=== PATIENT | female | born 1950 | race Caucasian/White ===

== ENCOUNTER 2021-02-01 13:51 | Emergency (ER) | payer OTHER ==
[~2021-02-01] VITALS: Ht 172.7 cm; Wt 74.8 kg
[~2021-02-01 13:51] MED LIST: ACET325; ALEN70; ALEN70 PO; ASCO500; ASCO500 PO; ASPI81EC; ASPI81EC PO; BIOTIN1000 MCG; BISA5EC PO; CALCAVITDA PO; CALCIUM 500MG; CETI10 PO; CETI5 PO; CHOL10002; CHOL10002 PO; CLARITIN10 MG; DIGO.125; DIGO.125 PO; DIPH50; DOCU100; DRON400T; DRON400T PO; FEXO180; FIBE4P; FLAX PO; GROUND FLAX SEED; LOSA50; METO25ER PO; MOMENI; MULTAQ 400 MG; PRAV20; PRAVASTATIN; SPIR25; VITAMIN D2000 UNIT; WARF6; WARFARIN PO
[2021-02-01 14:52] LABS: BASOPHILS ABSOLUTE AUTO 0.01 K/mm3 (0.00-0.23); BASOPHILS PERCENT AUTO 0 % (0-2); EOSINOPHILS ABSOLUTE AUTO 0.04 K/mm3 (0.00-0.68); EOSINOPHILS PERCENT AUTO 1 % (0-6); Hematocrit 39.3 % (33.0-51.0); Hemoglobin 13.3 g/dL (11.5-16.0); IMMATURE GRAN ABSOLUTE AUTO 0.01 K/mm3 (0.00-0.10); IMMATURE GRAN PERCENT AUTO 0 % (0-1); LYMPHOCYTES ABSOLUTE AUTO 0.72 K/mm3 (0.84-5.20); LYMPHOCYTES PERCENT AUTO 13 % (21-46); MONOCYTES ABSOLUTE AUTO 0.32 K/mm3 (0.16-1.47); MONOCYTES PERCENT AUTO 6 % (4-13); Mean Corpuscular HGB 31.5 pg (26.0-34.0); Mean Corpuscular HGB Conc 33.8 g/dL (31.5-36.5); Mean Corpuscular Volume 93 fL (80-100); Mean Platelet Volume 10.5 fL (9.1-12.4); NEUTROPHILS ABSOLUTE AUTO 4.37 K/mm3 (1.96-9.15); NEUTROPHILS PERCENT AUTO 80 % (41-73); Platelet Count 304 K/mm3 (150-400); RDW Coefficient Variation 12.4 % (11.7-14.2); RDW Standard Deviation 42.9 fL (35.1-46.3); Red Blood Cell Count 4.22 M/mm3 (3.80-5.20); White Blood Cell Count 5.47 K/mm3 (4.00-11.30)
[2021-02-01 15:06] LABS: Prothrombin Time Results 20.8 Sec (9.7-11.5)
[2021-02-01 15:18] LABS: Alanine Aminotransfer (ALT/SGP 17 U/L (12-78); Albumin, Blood 3.8 g/dL (3.4-5.0); Albumin/Globulin Ratio 1.1 (0.8-1.8); Alk Phos 47 U/L (50-136); Anion Gap 5 mmol/L (6-16); Aspartate Aminotrans (AST/SGOT 18 U/L (12-37); Bilirubin, Total 0.4 mg/dL (0.1-1.0); Blood Urea Nitrogen 11 mg/dL (8-24); Bun/Creatinine Ratio 15.2 (12.0-20.0); CO2, Blood 26 mmol/L (21-32); Calcium, Blood 8.9 mg/dL (8.5-10.1); Chloride, Blood 108 mmol/L (98-108); Creatinine, Blood 0.72 mg/dL (0.40-1.00); Globulin, Blood 3.4 g/dL (2.2-4.0); Glomerular Filtration Rate >60 (60-); Glucose, Blood 110 mg/dL (70-99); Potassium, Blood 3.7 mmol/L (3.5-5.5); Sodium, Blood 139 mmol/L (136-145); Total Protein, Blood 7.2 g/dL (6.4-8.2)
[2021-02-01 15:43] LABS: Source, Urine Clean Catch
[2021-02-01 15:47] LABS: Appearance, Urine Clear (Clear); Bilirubin, Urine Neg (Neg); Blood, Urine Neg (Neg); Color, Urine Yellow (P-Yellow); Glucose Qualitative, Urine Neg (Neg); Ketones, Urine Neg (Neg); Leukocyte Esterase, Urine 1+ (Neg); Nitrite, Urine Neg (Neg); Protein, Urine Neg (Neg); Urobilinogen, Urine NORM (Normal)
[2021-02-01 15:54] LABS: Bacteria Many /hpf; Red Blood Cells, Urine Not Seen /hpf (0-2); Squamous Epithelial Cells Mod /hpf (Few); White Blood Cells, Urine 0-2 /hpf (0-5)
== END 2021-02-01 16:46 | disposition home or self-care (01) ==
LOC: ER 13:51
PROVIDERS: Emergency Medicine
DX: H81.399 Other peripheral vertigo, unspecified ear (principal); Z79.01 Long term (current) use of anticoagulants; Z79.82 Long term (current) use of aspirin; Z79.899 Other long term (current) drug therapy
CPT/HCPCS: 80053; 81001; 82947; 84484; 85025; 85610; 87086; 93005; 93010; 99284-25

== ENCOUNTER 2021-05-19 08:42 | Emergency (ER) | payer OTHER ==
[~2021-05-19] VITALS: Ht 172.7 cm; Wt 74.4 kg
[2021-05-19] MEDS ORDERED: OXYC5 PO (10:34)
== END 2021-05-19 11:32 | disposition home or self-care (01) ==
LOC: ER 08:42
DX: S39.011A Strain of muscle, fascia and tendon of abdomen, initial encounter (principal); I25.2 Old myocardial infarction; J45.909 Unspecified asthma, uncomplicated; Z86.73 Personal history of transient ischemic attack (TIA), and cerebral infarction without residual deficits; Z87.891 Personal history of nicotine dependence; Z79.899 Other long term (current) drug therapy; Z79.01 Long term (current) use of anticoagulants; X58.XXXA Exposure to other specified factors, initial encounter
CPT/HCPCS: 72170; 99283-25

== ENCOUNTER → 2023-10-03 | Outpatient (CLI) | payer OTHER ==
[~2023-10-03] MED LIST changes: +OXYC5 PO
== END ==
LOC: LAB SHORT 15:21 → LAB 15:21
DX: L03.211 Cellulitis of face (principal)
CPT/HCPCS: 87070; 87205

== ENCOUNTER 2024-06-20 23:37 | Emergency (ER) | payer OTHER ==
[~2024-06-20] VITALS: Ht 170.2 cm; Wt 50.8 kg
[2024-06-21] MEDS ORDERED: Gabapentin 100 MG Cap PO ONE (00:05)
[2024-06-21] MEDS ORDERED: Ibuprofen 400 MG Tab PO ONE (00:05)
[2024-06-21] MEDS ORDERED: Voltaren100 GM TOP (00:53)
[2024-06-21 01:00] VITALS: BP 119/75
== END 2024-06-21 01:30 | disposition home or self-care (01) ==
LOC: ER 23:37
DX: M25.562 Pain in left knee (principal); G89.29 Other chronic pain; I25.2 Old myocardial infarction; Z98.890 Other specified postprocedural states; Z87.891 Personal history of nicotine dependence; J45.909 Unspecified asthma, uncomplicated; Z79.82 Long term (current) use of aspirin; Z79.01 Long term (current) use of anticoagulants; Z79.899 Other long term (current) drug therapy; Z88.0 Allergy status to penicillin; Z91.018 Allergy to other foods
CPT/HCPCS: 73562-LT; 99283-25; A9270

== ENCOUNTER 2024-08-15 09:33 | Emergency (ER) | payer OTHER ==
[~2024-08-15] VITALS: Ht 167.6 cm; Wt 68.0 kg
[~2024-08-15 09:33] MED LIST changes: +Voltaren100 GM TOP
[2024-08-15 10:20] LABS: BASOPHILS ABSOLUTE AUTO 0.01 K/mm3 (0.00-0.23); BASOPHILS PERCENT AUTO 0 % (0-2); EOSINOPHILS ABSOLUTE AUTO 0.06 K/mm3 (0.00-0.68); EOSINOPHILS PERCENT AUTO 1 % (0-6); Hematocrit 34.9 % (33.0-51.0); Hemoglobin 11.8 g/dL (11.5-16.0); IMMATURE GRAN ABSOLUTE AUTO 0.02 K/mm3 (0.00-0.10); IMMATURE GRAN PERCENT AUTO 0 % (0-1); LYMPHOCYTES ABSOLUTE AUTO 0.74 K/mm3 (0.84-5.20); LYMPHOCYTES PERCENT AUTO 13 % (21-46); MONOCYTES ABSOLUTE AUTO 0.38 K/mm3 (0.16-1.47); MONOCYTES PERCENT AUTO 7 % (4-13); Mean Corpuscular HGB 31.8 pg (26.0-34.0); Mean Corpuscular HGB Conc 33.8 g/dL (31.5-36.5); Mean Corpuscular Volume 94 fL (80-100); Mean Platelet Volume 9.8 fL (9.1-12.4); NEUTROPHILS ABSOLUTE AUTO 4.59 K/mm3 (1.96-9.15); NEUTROPHILS PERCENT AUTO 79 % (41-73); Platelet Count 328 K/mm3 (150-400); RDW Coefficient Variation 12.8 % (11.7-14.2); RDW Standard Deviation 44.3 fL (35.1-46.3); Red Blood Cell Count 3.71 M/mm3 (3.80-5.20)
[2024-08-15 10:32] LABS: International Normalized Ratio 1.95; Prothrombin Time Results 19.9 Sec (9.7-11.5)
[2024-08-15 10:38] LABS: Albumin, Blood 2.9 g/dL (3.4-5.0); Albumin/Globulin Ratio 0.8 (0.8-1.8); Bilirubin, Total 0.4 mg/dL (0.1-1.0); Bun/Creatinine Ratio 20.5 (12.0-20.0); Calcium, Blood 8.8 mg/dL (8.5-10.1); Creatinine, Blood 0.83 mg/dL (0.40-1.00); Globulin, Blood 3.5 g/dL (2.2-4.0); Total Protein, Blood 6.4 g/dL (6.4-8.2)
[2024-08-15] MEDS ORDERED: NS 1,000 ML IV SCH (11:00)
[2024-08-15 12:34] VITALS: BP 154/95
== END 2024-08-15 12:55 | disposition short-term general hospital (02) ==
LOC: ER 09:33
PROVIDERS: Physician Assistant; Student in an Organized Health Care Education/Training Program
DX: I63.9 Cerebral infarction, unspecified (principal); R47.01 Aphasia; R47.1 Dysarthria and anarthria; I48.91 Unspecified atrial fibrillation; J45.909 Unspecified asthma, uncomplicated; I69.351 Hemiplegia and hemiparesis following cerebral infarction affecting right dominant side; I25.2 Old myocardial infarction; Z87.891 Personal history of nicotine dependence; Z88.0 Allergy status to penicillin; Z91.018 Allergy to other foods; Z79.01 Long term (current) use of anticoagulants; Z79.82 Long term (current) use of aspirin; Z79.899 Other long term (current) drug therapy
CPT/HCPCS: 70450; 70496; 70498; 80053; 82947; 85025; 85610; 93005; 93010; 96360-59; 96361; 99285-25; J7030; Q9967

== ENCOUNTER 2024-10-31 03:35 | Emergency (ER) | payer OTHER ==
[~2024-10-31] VITALS: Ht 162.6 cm; Wt 54.4 kg
[2024-10-31 04:15] LABS: BASOPHILS ABSOLUTE AUTO 0.03 K/mm3 (0.00-0.23); BASOPHILS PERCENT AUTO 1 % (0-2); EOSINOPHILS ABSOLUTE AUTO 0.12 K/mm3 (0.00-0.68); EOSINOPHILS PERCENT AUTO 2 % (0-6); Hematocrit 39.7 % (33.0-51.0); Hemoglobin 13.3 g/dL (11.5-16.0); IMMATURE GRAN ABSOLUTE AUTO 0.02 K/mm3 (0.00-0.10); IMMATURE GRAN PERCENT AUTO 0 % (0-1); LYMPHOCYTES ABSOLUTE AUTO 0.98 K/mm3 (0.84-5.20); LYMPHOCYTES PERCENT AUTO 20 % (21-46); MONOCYTES ABSOLUTE AUTO 0.36 K/mm3 (0.16-1.47); MONOCYTES PERCENT AUTO 7 % (4-13); Mean Corpuscular HGB 32.1 pg (26.0-34.0); Mean Corpuscular HGB Conc 33.5 g/dL (31.5-36.5); Mean Corpuscular Volume 96 fL (80-100); Mean Platelet Volume 10.4 fL (9.1-12.4); NEUTROPHILS ABSOLUTE AUTO 3.49 K/mm3 (1.96-9.15); NEUTROPHILS PERCENT AUTO 70 % (41-73); Platelet Count 296 K/mm3 (150-400); Red Blood Cell Count 4.14 M/mm3 (3.80-5.20)
[2024-10-31 04:43] LABS: Alanine Aminotransfer (ALT/SGP 19 U/L (12-78); Albumin, Blood 3.7 g/dL (3.4-5.0); Alk Phos 57 U/L (50-136); Anion Gap 6 mmol/L (3-11); Aspartate Aminotrans (AST/SGOT 18 U/L (12-37); Bilirubin, Total 0.6 mg/dL (0.1-1.0); Blood Urea Nitrogen 15 mg/dL (8-24); Bun/Creatinine Ratio 19.3 (12.0-20.0); CO2, Blood 29 mmol/L (21-32); Calcium, Blood 9.7 mg/dL (8.5-10.1); Chloride, Blood 110 mmol/L (98-108); Creatinine, Blood 0.78 mg/dL (0.40-1.00); Ethanol (Alcohol), Blood, Med <3 mg/dL; Globulin, Blood 3.8 g/dL (2.2-4.0); Glomerular Filtration Rate 81 (60-); Glucose, Blood 102 mg/dL (70-99); Potassium, Blood 4.2 mmol/L (3.5-5.5); Sodium, Blood 141 mmol/L (136-145); Total Protein, Blood 7.5 g/dL (6.4-8.2)
[2024-10-31 04:59] LABS: Source, Urine Clean Catch
[2024-10-31 05:08] LABS: Bilirubin, Urine Neg (Neg); Blood, Urine 5+ (Neg); Glucose Qualitative, Urine Neg (Neg); Ketones, Urine Neg (Neg); Leukocyte Esterase, Urine 2+ (Neg); Nitrite, Urine Neg (Neg); Protein, Urine 2+ (Neg); Specific Gravity, Urine 1.015 (1.003-1.022); Urobilinogen, Urine NORM (Normal)
[2024-10-31 05:16] LABS: Color, Urine Pale Yellow (P-Yellow)
[2024-10-31 05:17] LABS: Appearance, Urine Clear (Clear)
[2024-10-31 05:20] LABS: International Normalized Ratio 1.1; Prothrombin Time Results 11.7 Sec (9.7-11.5); Red Blood Cells, Urine 25-50 /hpf (0-2)
[2024-10-31 05:22] LABS: Squamous Epithelial Cells Rare /hpf (Few)
[2024-10-31 05:25] LABS: Bacteria Few /hpf
[2024-10-31] MEDS ORDERED: CefTRIAXone Sodium 1,000 MG in NS 50 ML IV ONE (05:50)
[2024-10-31] MEDS ORDERED: Ativan1 MG (05:53)
[2024-10-31] MEDS ORDERED: TRAM50 PO (05:53)
[2024-10-31] MEDS ORDERED: SPIR25 PO (06:00)
[2024-10-31] MEDS ORDERED: Robaxin750 MG PO (06:01)
[2024-10-31] MEDS ORDERED: ELIQUIS5 M2 PO (06:01)
[2024-10-31] MEDS ORDERED: PRAVASTATIN SOD40 MG PO (06:04)
[2024-10-31 08:30] VITALS: BP 153/104
== END 2024-10-31 12:39 | disposition home or self-care (01) ==
LOC: ER 03:35
PROVIDERS: Emergency Medicine
DX: I63.9 Cerebral infarction, unspecified (principal); G81.91 Hemiplegia, unspecified affecting right dominant side; R47.81 Slurred speech; R47.89 Other speech disturbances; R29.702 NIHSS score 2; I48.91 Unspecified atrial fibrillation; J45.909 Unspecified asthma, uncomplicated; I25.2 Old myocardial infarction; Z87.442 Personal history of urinary calculi; Z87.891 Personal history of nicotine dependence; Z88.0 Allergy status to penicillin; Z95.5 Presence of coronary angioplasty implant and graft; Z91.018 Allergy to other foods; Z79.82 Long term (current) use of aspirin; Z79.01 Long term (current) use of anticoagulants; Z79.899 Other long term (current) drug therapy; Z59.89 Other problems related to housing and economic circumstances
CPT/HCPCS: 70450; 70496; 70498; 80053; 80320; 81001; 85025; 85610; 85730; 87086; 93005; 93010; 96365; 99285-25; J0696; Q9967

== ENCOUNTER 2024-11-08 08:27 | Inpatient (IN) | payer OTHER ==
[~2024-11-08] VITALS: Ht 162.6 cm; Wt 2.0 kg
[~2024-11-08 08:27] MED LIST changes: +Ativan1 MG; +ELIQUIS5 M2 PO; +PRAVASTATIN SOD40 MG PO; +Robaxin750 MG PO; +SPIR25 PO; +TRAM50 PO
[2024-11-08] MEDS ORDERED: LOSA25 PO (08:42)
[2024-11-08] MEDS ORDERED: ELIQUIS5 M2 PO (08:42)
[2024-11-08] MEDS ORDERED: PRAV20 PO (08:43)
[2024-11-08 08:44] LABS: BASOPHILS ABSOLUTE AUTO 0.02 K/mm3 (0.00-0.23); BASOPHILS PERCENT AUTO 0 % (0-2); EOSINOPHILS ABSOLUTE AUTO 0.15 K/mm3 (0.00-0.68); EOSINOPHILS PERCENT AUTO 3 % (0-6); Hematocrit 39.5 % (33.0-51.0); Hemoglobin 13.1 g/dL (11.5-16.0); IMMATURE GRAN ABSOLUTE AUTO 0.02 K/mm3 (0.00-0.10); IMMATURE GRAN PERCENT AUTO 0 % (0-1); LYMPHOCYTES ABSOLUTE AUTO 1.16 K/mm3 (0.84-5.20); LYMPHOCYTES PERCENT AUTO 24 % (21-46); MONOCYTES ABSOLUTE AUTO 0.34 K/mm3 (0.16-1.47); MONOCYTES PERCENT AUTO 7 % (4-13); Mean Corpuscular HGB 32.2 pg (26.0-34.0); Mean Corpuscular HGB Conc 33.2 g/dL (31.5-36.5); Mean Corpuscular Volume 97 fL (80-100); NEUTROPHILS ABSOLUTE AUTO 3.23 K/mm3 (1.96-9.15); NEUTROPHILS PERCENT AUTO 66 % (41-73); Platelet Count 320 K/mm3 (150-400); RDW Coefficient Variation 13.2 % (11.7-14.2); RDW Standard Deviation 47.2 fL (35.1-46.3); Red Blood Cell Count 4.07 M/mm3 (3.80-5.20); White Blood Cell Count 4.92 K/mm3 (4.00-11.30)
[2024-11-08 09:04] LABS: Base Excess Venous 2.6 mmol/L; Bicarbonate Venous 26.2 mmol/L (24.0-30.0); PCO2 Venous 44.8 mmHg (38-42)
[2024-11-08 09:13] LABS: Magnesium, Blood 2.3 mg/dL (1.6-2.4)
[2024-11-08 09:16] LABS: Alanine Aminotransfer (ALT/SGP 31 U/L (12-78); Albumin, Blood 3.7 g/dL (3.4-5.0); Albumin/Globulin Ratio 1.2 (0.8-1.8); Alk Phos 53 U/L (50-136); Anion Gap 7 mmol/L (3-11); Aspartate Aminotrans (AST/SGOT 25 U/L (12-37); Bilirubin, Total 0.4 mg/dL (0.1-1.0); Blood Urea Nitrogen 17 mg/dL (8-24); Bun/Creatinine Ratio 19.7 (12.0-20.0); CO2, Blood 29 mmol/L (21-32); Calcium, Blood 9.3 mg/dL (8.5-10.1); Chloride, Blood 110 mmol/L (98-108); Creatinine, Blood 0.86 mg/dL (0.40-1.00); Ethanol (Alcohol), Blood, Med <3 mg/dL; Globulin, Blood 3.2 g/dL (2.2-4.0); Glomerular Filtration Rate 72 (60-); Glucose, Blood 93 mg/dL (70-99); Potassium, Blood 4.4 mmol/L (3.5-5.5); Sodium, Blood 142 mmol/L (136-145); Total Protein, Blood 6.9 g/dL (6.4-8.2)
[2024-11-08 09:59] LABS: Source, Urine Straight Cath
[2024-11-08 10:02] LABS: Appearance, Urine Hazy (Clear); Bilirubin, Urine Neg (Neg); Blood, Urine 5+ (Neg); Glucose Qualitative, Urine Neg (Neg); Ketones, Urine Neg (Neg); Leukocyte Esterase, Urine 2+ (Neg); Nitrite, Urine Neg (Neg); Protein, Urine 2+ (Neg); Specific Gravity, Urine 1.005 (1.003-1.022); Urobilinogen, Urine NORM (Normal)
[2024-11-08] MEDS ORDERED: METO25 PO (10:03)
[2024-11-08] MEDS ORDERED: TRAM50 PO (10:04)
[2024-11-08] MEDS ORDERED: Naproxen250 MG PO (10:04)
[2024-11-08] MEDS ORDERED: LORA1 PO (10:05)
[2024-11-08 10:15] LABS: Color, Urine Pale Yellow (P-Yellow)
[2024-11-08 10:17] LABS: Red Blood Cells, Urine 50-100 /hpf (0-2)
[2024-11-08 10:18] LABS: Bacteria Rare /hpf; Squamous Epithelial Cells Rare /hpf (Few)
[2024-11-08 10:19] LABS: Transitional Epithelial Cells Rare /hpf (0-Rare); U Amphetamine Screen Not Detected; U Barbituate Screen Not Detected; U Benzodiazapine Screen Not Detected; U Buprenorphine Screen Not Detected; U Cannabinoids Screen Not Detected; U Cocaine Screen Not Detected; U Methadone Screen Not Detected; U Methamphetamine Screen Not Detected; U Opiates Screen Not Detected; U Oxycodone Screen Not Detected; U Phencyclidine Screen Not Detected
[2024-11-08] MEDS ORDERED: Aspirin 325 MG Tab PO ONE (10:25)
[2024-11-08] MEDS ORDERED: LORazepam 1 MG Tab PO PRN (12:05)
[2024-11-08] MEDS ORDERED: TraMADol HCl 50 MG Tab PO PRN (12:05)
[2024-11-08] MEDS ORDERED: FLU VACC TS2024-25(6MOS UP)/PF 45 MCG/0.5 ML SYRINGE IM PRN (12:10)
[2024-11-08] MEDS ORDERED: Prochlorperazine Edisylate 10 mg Vial IV PRN (12:10)
[2024-11-08 17:16] VITALS: BP 153/84
[2024-11-08 19:17] VITALS: BP 131/69
[2024-11-08] MEDS ORDERED: Apixaban 5 MG Tab PO SCH (21:00)
[2024-11-08] MEDS ORDERED: Pravastatin Sodium 20 MG Tab PO SCH (21:00)
[2024-11-08] MEDS ORDERED: Metoprolol Tartrate 25 MG Tab PO SCH (21:00)
[2024-11-09 00:31] VITALS: BP 115/77
--- NOTE | 2024-11-09 00:45 | NUR ---
ASSUMED CARE OF PT. PT IS SLEEPING - RESPIRATIONS EVEN AND UNLABORED. CALL LIGHT WITHIN REACH. BED IN LOW POSITION. PO FLUIDS ON OVERBED TABLE.
[2024-11-09 04:38] VITALS: BP 109/65
[2024-11-09 05:08] LABS: BASOPHILS ABSOLUTE AUTO 0.02 K/mm3 (0.00-0.23); BASOPHILS PERCENT AUTO 0 % (0-2); EOSINOPHILS ABSOLUTE AUTO 0.14 K/mm3 (0.00-0.68); EOSINOPHILS PERCENT AUTO 3 % (0-6); Hematocrit 36.4 % (33.0-51.0); Hemoglobin 12.1 g/dL (11.5-16.0); IMMATURE GRAN ABSOLUTE AUTO 0.01 K/mm3 (0.00-0.10); IMMATURE GRAN PERCENT AUTO 0 % (0-1); LYMPHOCYTES ABSOLUTE AUTO 1.12 K/mm3 (0.84-5.20); LYMPHOCYTES PERCENT AUTO 23 % (21-46); MONOCYTES ABSOLUTE AUTO 0.39 K/mm3 (0.16-1.47); MONOCYTES PERCENT AUTO 8 % (4-13); Mean Corpuscular HGB 32.2 pg (26.0-34.0); Mean Corpuscular HGB Conc 33.2 g/dL (31.5-36.5); Mean Corpuscular Volume 97 fL (80-100); Mean Platelet Volume 10.5 fL (9.1-12.4); NEUTROPHILS PERCENT AUTO 65 % (41-73); Platelet Count 303 K/mm3 (150-400); RDW Coefficient Variation 13.1 % (11.7-14.2); RDW Standard Deviation 47.4 fL (35.1-46.3); Red Blood Cell Count 3.76 M/mm3 (3.80-5.20); White Blood Cell Count 4.78 K/mm3 (4.00-11.30)
[2024-11-09 05:41] LABS: Albumin, Blood 3.2 g/dL (3.4-5.0); Bilirubin, Total 0.6 mg/dL (0.1-1.0); Bun/Creatinine Ratio 21.6 (12.0-20.0); Calcium, Blood 9.1 mg/dL (8.5-10.1); Creatinine, Blood 0.79 mg/dL (0.40-1.00); Globulin, Blood 3.1 g/dL (2.2-4.0); Total Protein, Blood 6.3 g/dL (6.4-8.2)
--- NOTE | 2024-11-09 06:38 | NUR ---
SHIFT SUMMARY - PT HAD A PUREWICK IN PLACE - NO URINE OUTPUT. PLACED PT ON BEDPAN AFTER BLADDER SCAN OF 466. 400 CC OF TEA COLORED URINE OUT. PT GRIMACING IN PAIN WHEN BED LOWERED FOR BEDPAN USE. PT AGREEABLE TO ULTRAM FOR PAIN - THEN DECLINED IT. PT DENIED ANY HEADACHE PAIN. CALL LIGHT WITHIN REACH. BED IN LOW POSITION. FLUIDS AT BEDSIDE. WILL REPORT OFF TO ONCOMING SHIFT.
[2024-11-09 07:28] VITALS: BP 139/75
[2024-11-09] MEDS ORDERED: Aspirin 81 MG TabEC PO SCH (09:00)
[2024-11-09] MEDS ORDERED: Spironolactone 12.5 MG TAB PO SCH (09:00)
[2024-11-09 11:22] VITALS: BP 123/71
[2024-11-09 15:53] VITALS: BP 110/64
[2024-11-09 19:40] VITALS: BP 123/72
[2024-11-10 00:52] VITALS: BP 152/79
[2024-11-10 04:13] VITALS: BP 134/79
--- NOTE | 2024-11-10 06:30 | NUR ---
PT STABLE THROUGHOUT SHIFT, NO WORSENING NEURO DEFICITS. 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 PT DOES HAVE SOME WORD FINDING ALSO D/T PREVIOUS CVA. PT DOES REPORT STABLE VISION LOSS TO OUTER RIGHT FIELD ON RIGHT EYE. PT DOES HAVE SOME OCCASSIONAL MILD CONFUSION BUT IS EASILY REORIENTED. PT DID URINATE ON BED COBOS. VITAL SIGNS HAVE REMAINED STABLE.
[2024-11-10 07:46] VITALS: BP 144/94
[2024-11-10] MEDS ORDERED: Miconazole Nitrate 2% 85 GM PWD TOP PRN (10:00)
[2024-11-10] MEDS ORDERED: Acetaminophen 325 MG TABLET PO PRN (10:05)
[2024-11-10 16:52] VITALS: BP 137/81
[2024-11-10 19:48] VITALS: BP 113/82
--- NOTE | 2024-11-10 20:07 | NUR ---
assumed care of pt very pleasent pt cooperative with care, possible discharge today after MRI this morning. pt returned from MRI and was able to feed self, had no c/o pain no distress and stated she would call if needing anything. pt was changed multiple time thoughout shift, pt is continent but chooses to use briefs because its easier.
--- NOTE | 2024-11-10 20:11 | NUR ---
discharge orders held today, pt to be transfered to SNF tomorrow for rehab and possible transfer to foster care. foster care agent came in this evening to interview pt for possible transfer to facility. pt able to make needs know call light within reach and family at bedside.
[2024-11-11 04:06] VITALS: BP 117/79
[2024-11-11 07:59] VITALS: BP 124/85
[2024-11-11 15:35] VITALS: BP 138/91
--- NOTE | 2024-11-11 19:38 | NUR ---
SHIFT SUMMARY PT A&OX4, PT IS FORGETFUL AT TIMES. PT ADMITTED DUE TO CVA. VSS. PHYSICAL THERAPY CAME THIS AM TO WORK WITH PT. PT TURNED Q2 HOURS. PT INC. PT USES ATTENDS, ATTENDS CHANGED PRN. PT BED IN LOWEST POSITION. PT CALLS APPROPRIATE. CALL LIGHT IN REACH, PLACEMENT STILL PENDING. PT ON BEDREST. PT REPORTS PAIN BUT DENIED PAIN MEDS.
[2024-11-11 20:17] VITALS: BP 146/85
[2024-11-12 04:47] VITALS: BP 125/81
--- NOTE | 2024-11-12 06:07 | NUR ---
AAOX3, FORGETFUL. USES CALL LIGHT OR ALERTS STAFF WHEN WALKING BY IN HALLWAY FOR NEEDS. INCONTINENT, BRIEFS CHANGED PRN. ULTRAM FOR LLE PAIN, KNEE COMPRESSION SLEEVE ON L KNEE. MODERATE ASSISTANCE TURNING FROM SIDE TO SIDE IN BED FOR BRIEF CHANGES. DECLINES TO REPOSITIONED ON EITHER SIDE, SHE IS MOSTLY IN HIGH FOLWERS POS.
[2024-11-12 07:19] VITALS: BP 131/95
--- NOTE | 2024-11-12 17:17 | NUR ---
PT IS GOING HOME WITH HOSPICE TO [facility]. CODE STATUS CHANGED, POLST FILLED OUT WITH DAUGHTER MAHENDRA VIA T/C.
--- NOTE | 2024-11-12 19:34 | NUR ---
SHIFT SUMMARY PATIENT WITH MUSCLE SPASM TO RIGHT LEG THIS AM, MEDICATED FOR PAIN PER EMAR WITH GOOD RELIEF. BED IN LOW POSITION, CALL LIGHT IN REACH. SHE IS ABLE TO MAKE NEEDS KNOWN.
[2024-11-12 20:28] VITALS: BP 105/62
--- NOTE | 2024-11-13 03:28 | NUR ---
SHIFT SUMMARY NO ACUTE EVENTS DURING THIS SHIFT. MEDICATED WITH TRAMADOL FOR RIGHT KNEE PAIN AND MEDICATED WITH ATIVAN PRN PO FOR ANXIETY. EFFECTIVE. PT IS A/O X3, ABLE TO MAKE HER NEEDS KNOWN AND COOPERATIVE WITH CARE. RIGHT SIDED DEFICIT NOTED AND REPORTED PER PT. BED AT THE LOWEST POSITION, CALL LIGHT W/I REACH. BED ALARM FOR SAFETY. METOPROLOL HELD AT HS D/T SOFTER BP'S.
[2024-11-13 03:49] VITALS: BP 122/69
[2024-11-13 07:32] VITALS: BP 106/78
[2024-11-13 08:57] VITALS: BP 120/77
[2024-11-13 15:40] VITALS: BP 109/65
--- NOTE | 2024-11-13 18:10 | NUR ---
SHIFT SUMMARY PATIENT WITH NO ACUTE EVENTS DURING SHIFT SHE IS AOX4 PLEASANT AND COOPERATIVE WITH CARE. SHE USES CALL LIGHT APPROPRIATELY AND IS ABLE TO MAKE NEEDS KNOWN. SHE IS MEDICATED FOR PAIN PER EMAR WITH GOOD RELIEF. BED IN LOW POSITION, CALL LIGHT IN REACH. ACTIVE LISTENING AND CROSSWORD PUZZLES PROVIDED TO PATIENT.
[2024-11-13 19:15] VITALS: BP 97/72
[2024-11-13] MEDS ORDERED: OxyCODONE 5 mg/Acetamin 325 mg TABLET PO PRN (23:30)
--- NOTE | 2024-11-13 23:31 | NUR ---
NEW T-ORDERS RECEIVED FROM THE ON-CALL HOSPITALIST MARI: D/C TRAMADOL 50MG PO PRN AND NEW ORDER FOR PERCOCET 5/325MG 1 TAB PO Q4HRS PRN. ENTERED TO [employer], SEE EMAR.
--- NOTE | 2024-11-14 03:26 | NUR ---
SHIFT SUMMARY NO ACUTE EVENTS DURING THIS SHIFT. @[facility] TRAMADOL PRN WAS D/C'D AND SWITCHED TO PO PERCOCET WITH GOOD EFFECTIVNESS. PT REPORTED 9/10 LEFT LEG PAIN WHICH RESOLVED WITH PO PERCOCET 5/325MG TAB. REPOSITIONED IN BED T/O THIS SHIFT. PT IS A/O X3-4, FORGETFUL, COOPERATIVE WITH CARE. BED AT THE LOWEST POSITION, CALL LIGHT W/I REACH. PT CALLS APPROPRIATELY, ABLE TO MAKE HER NEEDS KNOWN.
[2024-11-14 04:01] VITALS: BP 108/74
[2024-11-14 07:08] VITALS: BP 104/61
[2024-11-14] MEDS ORDERED: Percocet 5-3251 EACH PO (10:54)
--- NOTE | 2024-11-14 12:35 | NUR ---
REVIEWED WIRE INSERTER DOCUMENTATION WITH STUDENT; MADE CHANGES TO ASSESSMENT WHEN NOT AGREEABLE; DISCUSSED REASONING WITH STUDENT
--- NOTE | 2024-11-14 13:53 | NUR ---
DISCHARGE NOTE: PATIENT'S IV WAS REMOVED, HER BELONGINGS WERE COLLECTED, AND SHE WAS DRESSED. MEDICAL TRANSPORT ARRIVED VIA GURNEY TO TAKE PATIENT FACILITY. WENT OVER THE DISCHARGE WITH THE PATIENT. NO SIGNS OR SYMPTOMS OF DISTRESS WITH DISCHARGE. PAPERWORK GIVEN TO MEDICAL TRANSPORTERS.
== END 2024-11-14 13:32 | disposition home or self-care (01) | DRG 57 ==
LOC: ER 08:27 → ERHOLD 12:05 → MEDS 12:05 → ENPENDDIS 11-14 13:02 → MEDS 11-14 13:32
PROVIDERS: Student in an Organized Health Care Education/Training Program; ADMIT Internal Medicine
DX: I69.951 Hemiplegia and hemiparesis following unspecified cerebrovascular disease affecting right dominant side (principal); F03.94 Unspecified dementia, unspecified severity, with anxiety; E78.5 Hyperlipidemia, unspecified; I10 Essential (primary) hypertension; Z51.5 Encounter for palliative care; G89.29 Other chronic pain; I48.91 Unspecified atrial fibrillation; I69.920 Aphasia following unspecified cerebrovascular disease
CPT/HCPCS: 36415; 70450; 70496; 70498; 70551; 80053; 80320; 81001; 82140; 82803; 82947; 83735; 85025; 87086; 93005; 93010; 97110; 97162; 97530; 99285-25; A9270; Q9967